=== PATIENT | male | born 1990 | race Caucasian/White ===

== ENCOUNTER 2019-03-06 11:13 | Emergency (ER) | payer SELFPAY ==
--- NOTE | 2019-03-06 11:44 | Emergency Department Record ---
History of Present Illness - General Chief Complaint: Abdominal Pain Stated Complaint: HERNIA AND STOMACH ULCERS Time Seen by Provider: 03/06/19 11:24 Source: Patient Mode of Arrival: Ambulatory Limitations: No limitations - History of Present Illness Initial Comments: The patient is here due to R groin bautista for the last 9 hours. The patient is worse with walking and bending. The patient has lifting very heavy objects 2 days ago but had no pain then. He also states he had some rectal bleeding 2 days ago but that resolved. He has had no abdominal pain, fever, diarrhea, dysuria, hematuria, or testicle pain. He has been eating and drinking with no problems or issues. MD Complaint: Other Onset/Timin -: Hour(s) Location: RLQ Severity scale (1-10): 8 Quality: Dull Consistency: Constant Improves With: Nothing Worsens With: Nothing - Related Data Home Medications Medication Instructions Recorded Confirmed Last Taken No Home Med [NO HOME MEDS] 03/06/19 03/06/19 Unknown Allergies Allergy/AdvReac Type Severity Reaction Status Date / Time bee venom protein (honey bee) Allergy ANEMIA Verified 03/06/19 11:23 mushroom Allergy ANAPHYLAXIS Verified 03/06/19 11:23 Travel Screening - Travel/Exposure Within Last 30 Days Have you traveled within the last 30 days?: No - Travel/Exposure Within Last Year Have you traveled outside the [place] in the last year?: No - Additonal Travel Details Have you been exposed to anyone with a communicable illness?: No - Travel Symptoms Symptom Screening: None Review of Systems Constitutional: Denies: Chills, Fever Eyes: Denies: Eye discharge ENT: Denies: Congestion Respiratory: Denies: Cough, Dyspnea Past Medical History - SOCIAL HISTORY Smoking Status: Never smoker Alcohol Use: Rare Drug Use: Rare Drug Use Detail:: Marijuana - RESPIRATORY Hx Respiratory Disorders: No - CARDIOVASCULAR Hx Cardio Disorders: No - NEURO Hx Neuro Disorders: No - GI Hx GI Disorders: Yes Hx Ulcer: Yes - Hx Genitourinary Disorders: No - ENDOCRINE Hx Endocrine Disorders: No - MUSCULOSKELETAL Hx Musculoskeletal Disorders: No - PSYCH Hx Psych Problems: No - HEMATOLOGY/ONCOLOGY Hx Hematology/Oncology Disorders: No Family Medical History Any Significant Family History?: No Physical Exam - General General Appearance: Alert, Oriented x3, Cooperative, No acute distress - Head Head exam: Atraumatic, Normocephalic - Eye Eye exam: Normal appearance, PERRL - Neck Neck exam: Normal inspection, Full ROM. negative: Tenderness - Respiratory Respiratory exam: Normal lung sounds bilaterally. negative: Respiratory distress - Cardiovascular Cardiovascular Exam: Regular rate, Normal rhythm, Normal heart sounds - GI/Abdominal GI/Abdominal exam: Soft, Normal bowel sounds. negative: Hernia, Rebound, Rigid, Tenderness - Rectal Rectal exam: Deferred (The patient is refusing a rectal exam.) - exam: Circumcision. negative: Normal inspection, Scrotal swelling, Testicular tenderness, Urethral discharge - Extremities Extremities exam: Normal inspection, Full ROM, Normal capillary refill. negative: Tenderness Image of Full Body: 1 - Area of pain and tenderness. There is no swelling or erythema. - Back Back exam: Reports: Normal inspection - Neurological Neurological exam: Alert. negative: Motor sensory deficit Course Vital Signs 03/06/19 11:13 Temperature 98.9 F Pulse Rate 86 Respiratory 18 Rate Blood Pressure 134/79 Pulse Ox 97 - Reevaluation(s) Reevaluation #1: The patient is doing very well at this time. He only has R groin pain when he walks, bends or moves his R leg. I did discuss the need to rest due to the patient having a mild groin strain. He is to see his PCP later this week for recheck. 03/06/19 12:31 Reevaluation #2: I also did discuss the need for F/U with his PCP for the possible rectal bleeding. Since the patient would not leg me check him rectally and he states he has no further bleeding, in addition to a normal HGB, I do feel the patient is stable for outpatient F/U. 03/06/19 12:32 Medical Decision Making - Lab Data Result diagrams: 03/06/19 11:40 03/06/19 11:40 Disposition Disposition: Discharge Clinical Impression: Right groin pain Disposition: Home, Self-Care Condition: (2) Stable Instructions: Groin Strain (ED) Additional Instructions: Please rest and use Tylenol for pain. Please see your family doctor for recheck later this week. Return to the ER for any worsening symptoms. Forms: Patient Portal Access Time of Disposition: 12:29 Quality - Quality Measures Quality Measures: N/A - Blood Pressure Screening View Details: Yes Does Patient Have Any of the Following: No Blood Pressure Classification: Pre-Hypertensive BP Reading Systolic Measurement: 134 Diastolic Measurement: 79 Screening for High Blood Pressure: < Pre-Hypertensive BP, F/U Documented > [G8950] Pre-Hypertensive Follow-up Interventions: Referral to alternative/primary care provider.
[2019-03-06 11:53] LABS: ABSOLUTE NEUTROPHIL COUNT 6.53; BASO % 0.4 % (0-6); EOS % 5.7 % (0-6); GRAN % 65.2 % (47-80); HEMATOCRIT 43.8 % (42.0-52.0); HEMOGLOBIN 15.1 gm/dl (14.0-18.0); LYMPH % 22.2 % (16-45); MEAN CELL VOLUME 84.4 fl (81-97); MEAN CORPUSCULAR HEMOGLOBIN 29.1 pg (27-33); MEAN CORPUSCULAR HGB CONC 34.5 g/dl (32-36); MEAN PLATELET VOLUME 9.8 fl (7.4-10.4); MONO % 6.5 % (0-9); PLATELET COUNT 309 K/uL (130-400); RED BLOOD COUNT 5.19 M/uL (4.40-5.70); RED CELL DISTRIBUTION WIDTH 12.2 % (11.5-14.5)
[2019-03-06 12:04] LABS: BLOOD UREA NITROGEN 13 mg/dL (6-20); CREATININE 0.8 mg/dL (0.7-1.2); EST GLOMERULAR FILTRATION RATE > 60 mL/min
[2019-03-06 12:05] LABS: TOTAL PROTEIN 7.3 g/dL (6.6-8.7)
[2019-03-06 12:07] LABS: GLUCOSE,RANDOM 111 mg/dL (74-109)
[2019-03-06 12:10] LABS: ALB/GLOB RATIO 1.6 (1.1-1.8); ALBUMIN 4.5 g/dL (4.0-5.0); ALKALINE PHOSPHATASE 87 U/L (40-129); ALT/SGPT 24 U/L (<41); AST/SGOT 18 U/L (10.0-50.0)
== END 2019-03-06 12:41 | disposition home or self-care (01) ==
LOC: ER 11:13
DX: S39.011A Strain of muscle, fascia and tendon of abdomen, initial encounter (principal); X50.0XXA Overexertion from strenuous movement or load, initial encounter; Y93.H9 Activity, other involving exterior property and land maintenance, building and construction
CPT/HCPCS: 80053; 85025; 99283

== ENCOUNTER 2019-04-28 22:45 | Emergency (ER) | payer SELFPAY ==
--- NOTE | 2019-04-28 23:04 | Emergency Department Record ---
History of Present Illness - General Chief Complaint: Ankle/Foot Injury Stated Complaint: INFECTED TOE NAIL Time Seen by Provider: 04/28/19 22:58 Source: Patient Mode of Arrival: Ambulatory - History of Present Illness Initial Comments: The patient has had about 3 months of a painful left great toenail. Tonight it began to drain so he came in to get it treated. He has no PCP. His tetanus is UTD. Onset/Timin -: Month(s) Type of Injury: Other Place: Home Severity scale (1-10): 6 Improves With: Other Worsens With: Palpation, Weight bearing Associated Symptoms: Ambulatory - Related Data Previous Rx's Medication Instructions Recorded Cephalexin [Keflex] 500 mg PO QID #28 cap 04/28/19 Allergies Allergy/AdvReac Type Severity Reaction Status Date / Time bee venom protein (honey bee) Allergy ANEMIA Verified 04/28/19 22:53 mushroom Allergy ANAPHYLAXIS Verified 04/28/19 22:53 Travel Screening - Travel/Exposure Within Last 30 Days Have you traveled within the last 30 days?: No - Travel/Exposure Within Last Year Have you traveled outside the [place] in the last year?: No - Additonal Travel Details Have you been exposed to anyone with a communicable illness?: No - Travel Symptoms Symptom Screening: None Review of Systems Reviewed: No additional complaints except as noted below Constitutional: Reports: As per HPI. Denies: Chills, Fever, Malaise, Night sweats, Weakness, Weight change Eyes: Reports: As per HPI. Denies: Eye discharge, Eye pain, Photophobia, Vision change ENT: Reports: As per HPI. Denies: Congestion, Dental pain, Ear pain, Epistaxis, Hearing loss, Throat pain Respiratory: Reports: As per HPI. Denies: Cough, Dyspnea, Hemoptysis, Stridor, Wheezes Cardiovascular: Reports: As per HPI. Denies: Arrhythmia, Chest pain, Dyspnea on exertion, Edema, Murmurs, Orthopnea, Palpitations, Paroxysmal nocturnal dyspnea, Rheumatic Fever, Syncope Endocrine: Reports: As per HPI. Denies: Fatigue, Heat or cold intolerance, Polydipsia, Polyuria Gastrointestinal: Reports: As per HPI. Denies: Abdominal pain, Constipation, Diarrhea, Hematemesis, Hematochezia, Melena, Nausea, Vomiting Genitourinary: Reports: As per HPI. Denies: Dysuria, Frequency, Hematuria, Incontinence, Retention, Testicular pain, Testicular mass, Urgency Musculoskeletal: Reports: As per HPI. Denies: Arthralgia, Back pain, Gout, Joint swelling, Myalgia, Neck pain Skin: Reports: As per HPI. Denies: Bruising, Change in color, Change in hair/nails, Lesions, Pruritus, Rash Neurological: Reports: As per HPI. Denies: Abnormal gait, Confusion, Headache, Numbness, Paresthesias, Seizure, Tingling, Tremors, Vertigo, Weakness Psychiatric: Reports: As per HPI. Denies: Anxiety, Auditory hallucinations, Depression, Homicidal thoughts, Suicidal thoughts, Visual hallucinations Hematological/Lymphatic: Reports: As per HPI. Denies: Anemia, Blood Clots, Easy bleeding, Easy bruising, Swollen glands Past Medical History - SOCIAL HISTORY Smoking Status: Never smoker Alcohol Use: Occasional Drug Use: None - RESPIRATORY Hx Respiratory Disorders: No - CARDIOVASCULAR Hx Cardio Disorders: No - NEURO Hx Neuro Disorders: No - GI Hx GI Disorders: Yes Hx Ulcer: Yes - Hx Genitourinary Disorders: No - ENDOCRINE Hx Endocrine Disorders: No - MUSCULOSKELETAL Hx Musculoskeletal Disorders: No - PSYCH Hx Psych Problems: No - HEMATOLOGY/ONCOLOGY Hx Hematology/Oncology Disorders: No Family Medical History Any Significant Family History?: No Physical Exam - General General Appearance: Alert, Oriented x3, Cooperative, No acute distress - Head Head exam: Normal inspection - Eye Eye exam: Normal appearance, PERRL Pupils: Normal accommodation - ENT ENT exam: Normal exam, Mucous membranes moist, Normal external ear exam, Normal orophraynx, TM's normal bilaterally Ear exam: Normal external inspection. negative: External canal tenderness Nasal Exam: Normal inspection. negative: Discharge, Sinus tenderness Mouth exam: Normal external inspection, Tongue normal Teeth exam: Normal inspection. negative: Dental caries Throat exam: Normal inspection. negative: Tonsillar erythema, Tonsillar exudate - Neck Neck exam: Normal inspection, Full ROM. negative: Tenderness - Respiratory Respiratory exam: Normal lung sounds bilaterally. negative: Respiratory distress - Cardiovascular Cardiovascular Exam: Regular rate, Normal rhythm, Normal heart sounds - GI/Abdominal GI/Abdominal exam: Soft, Normal bowel sounds. negative: Tenderness - Rectal Rectal exam: Deferred - exam: Deferred - Extremities Extremities exam: Normal inspection, Full ROM, Normal capillary refill, Other (left great toe with ingrown infected toenail drainng with visible abscess and erythema extending proximally onto toe). negative: Tenderness Image of Feet: 1 - ingrown toenail to lateral aspect of left great toenail. Bulging abscess with drainage at lateral disal nail edge. - Back Back exam: Reports: Normal inspection, Full ROM. Denies: Muscle spasm, Rash noted, Tenderness - Neurological Neurological exam: Alert, CN II-XII intact, Normal gait, Oriented X3, Reflexes normal. negative: Motor sensory deficit - Psychiatric Psychiatric exam: Normal affect, Normal mood - Skin Skin exam: Dry, Intact, Normal color, Warm Course Vital Signs 04/28/19 22:48 Temperature 97.9 F Pulse Rate 71 Respiratory 18 Rate Blood Pressure 143/87 Pulse Ox 98 - Reevaluation(s) Reevaluation #1: PROCEDURE: sterile technique prepped, draped after digital block of lido no epi 1% to left great toe 4cc total with good anesthesia. Trimmed skin and incised nail edge until corner of nail loosed from skin and free. Patient tolerated will no discharge. 04/28/19 23:48 Medical Decision Making - Management Options MDM Management: No Additional Work-up Planned Disposition Disposition: Discharge Clinical Impression: Ingrown toenail of left foot Disposition: Home, Self-Care Condition: (1) Good Additional Instructions: Open toe shoe. Take antibiotics as directed until gone. Warm soaks to toe twice daily. Dot Etcher Prescriptions: Cephalexin [Keflex] 500 mg PO QID #28 cap Quality - Quality Measures Quality Measures: N/A - Blood Pressure Screening Does Patient Have Any of the Following: No Blood Pressure Classification: Pre-Hypertensive BP Reading Systolic Measurement: 143 Diastolic Measurement: 87 Screening for High Blood Pressure: < Pre-Hypertensive BP, F/U Documented > [G8950] Pre-Hypertensive Follow-up Interventions: Follow-up with rescreen every year., Referral to alternative/primary care provider.
[2019-04-28] MEDS ORDERED: CEPHALEXIN 500 MG CAPSULE PO STA (23:18)
== END 2019-04-28 23:55 | disposition home or self-care (01) ==
LOC: ER 22:45
DX: L60.0 Ingrowing nail (principal)
CPT/HCPCS: 11750; 99283

== ENCOUNTER 2019-07-23 23:16 | Emergency (ER) | payer SELFPAY ==
[2019-07-23] MEDS ORDERED: IPRATROPIUM/ALBUTEROL (0.5MG/3MG) NEB INH ONE (23:41)
[2019-07-23] MEDS ORDERED: METHYLPREDNISOLONE PF 125MG/VIAL IVP ONE (23:41)
[2019-07-23 23:54] LABS: ABSOLUTE NEUTROPHIL COUNT 11.57; HEMATOCRIT 41.8 % (42.0-52.0); HEMOGLOBIN 14.3 gm/dl (14.0-18.0); MEAN CELL VOLUME 83.9 fl (81-97); MEAN CORPUSCULAR HEMOGLOBIN 28.7 pg (27-33); MEAN CORPUSCULAR HGB CONC 34.2 g/dl (32-36); MEAN PLATELET VOLUME 9.9 fl (7.4-10.4); PLATELET COUNT 264 K/uL (130-400); RED BLOOD COUNT 4.98 M/uL (4.40-5.70); RED CELL DISTRIBUTION WIDTH 12.4 % (11.5-14.5); WHITE BLOOD COUNT W/O DIFF 14.1 K/uL (4.2-12.2)
[2019-07-23] MEDS ORDERED: LEVALBUTEROL HCL 1.25 MG/3 ML INH ONE (23:57)
[2019-07-24 00:06] LABS: BLOOD UREA NITROGEN 16 mg/dL (6-20); CREATININE 0.9 mg/dL (0.7-1.2); EST GLOMERULAR FILTRATION RATE > 60 mL/min
[2019-07-24 00:08] LABS: GLUCOSE,RANDOM 111 mg/dL (74-109)
[2019-07-24] MEDS ORDERED: ONDANSETRON HCL IV 4 MG/2 ML VIAL IVP ONE (00:09)
--- NOTE | 2019-07-24 00:14 | Emergency Department Record ---
History of Present Illness - General Chief Complaint: Cough Stated Complaint: VOMITING/ACHES/SANDY Time Seen by Provider: 07/23/19 23:27 Source: Patient Mode of Arrival: Ambulatory Limitations: No limitations - History of Present Illness Initial Comments: pt woke with congestion this am which became coughing green productive, sob, wheezing. he has vomited multiple times. he has pain w coughing MD Complaint: Chest pain, Cough, Shortness of breath -: Hour(s) Severity: Moderate Consistency: Getting worse Improves With: Nothing Worsens With: Coughing Context: Recent URI Associated Symptoms: Cough, Fever, Sputum production - Related Data Previous Rx's Medication Instructions Recorded Azithromycin [Zithromax] 250 mg PO DAILY #4 tab 07/24/19 Prednisone [Prednisone 20Mg] 20 mg PO Q12HR #8 tab 07/24/19 Allergies Allergy/AdvReac Type Severity Reaction Status Date / Time bee venom protein (honey bee) Allergy ANAPHYLAXIS Unverified 07/24/19 00:09 mushroom Allergy ANAPHYLAXIS Unverified 06/05/19 19:44 Travel Screening - Travel/Exposure Within Last 30 Days Have you traveled within the last 30 days?: No - Travel Symptoms Symptom Screening: None Review of Systems Reviewed: No additional complaints except as noted below Constitutional: Reports: As per HPI. Denies: Chills, Fever, Malaise, Night sweats, Weakness, Weight change Eyes: Reports: As per HPI. Denies: Eye discharge, Eye pain, Photophobia, Vision change ENT: Reports: As per HPI, Congestion. Denies: Dental pain, Ear pain, Epistaxis, Hearing loss, Throat pain Respiratory: Reports: As per HPI, Cough, Dyspnea. Denies: Hemoptysis, Stridor, Wheezes Cardiovascular: Reports: As per HPI. Denies: Arrhythmia, Chest pain, Dyspnea on exertion, Edema, Murmurs, Orthopnea, Palpitations, Paroxysmal nocturnal dyspnea, Rheumatic Fever, Syncope Endocrine: Reports: As per HPI. Denies: Fatigue, Heat or cold intolerance, Polydipsia, Polyuria Gastrointestinal: Reports: As per HPI. Denies: Abdominal pain, Constipation, Diarrhea, Hematemesis, Hematochezia, Melena, Nausea, Vomiting Genitourinary: Reports: As per HPI. Denies: Dysuria, Frequency, Hematuria, Incontinence, Retention, Testicular pain, Testicular mass, Urgency Musculoskeletal: Reports: As per HPI. Denies: Arthralgia, Back pain, Gout, Joint swelling, Myalgia, Neck pain Skin: Reports: As per HPI. Denies: Bruising, Change in color, Change in hair/ nails, Lesions, Pruritus, Rash Neurological: Reports: As per HPI. Denies: Abnormal gait, Confusion, Headache, Numbness, Paresthesias, Seizure, Tingling, Tremors, Vertigo, Weakness Psychiatric: Reports: As per HPI. Denies: Anxiety, Auditory hallucinations, Depression, Homicidal thoughts, Suicidal thoughts, Visual hallucinations Hematological/Lymphatic: Reports: As per HPI. Denies: Anemia, Blood Clots, Easy bleeding, Easy bruising, Swollen glands Past Medical History - SOCIAL HISTORY Smoking Status: Never smoker Alcohol Use: None Drug Use: None - RESPIRATORY Hx Respiratory Disorders: No - CARDIOVASCULAR Hx Cardio Disorders: No - NEURO Hx Neuro Disorders: No - GI Hx GI Disorders: Yes Hx Ulcer: Yes - Hx Genitourinary Disorders: No - ENDOCRINE Hx Endocrine Disorders: No - MUSCULOSKELETAL Hx Musculoskeletal Disorders: No - PSYCH Hx Psych Problems: No - HEMATOLOGY/ONCOLOGY Hx Hematology/Oncology Disorders: No Family Medical History Any Significant Family History?: No Physical Exam - General General Appearance: Alert, Oriented x3, Cooperative, Mild distress - Head Head exam: Normal inspection - Eye Eye exam: Normal appearance, PERRL, EOMI Pupils: Normal accommodation - ENT ENT exam: Normal exam, Mucous membranes moist, Normal external ear exam, Normal orophraynx Ear exam: Normal external inspection. negative: External canal tenderness Nasal Exam: Normal inspection. negative: Discharge, Sinus tenderness Mouth exam: Normal external inspection, Tongue normal Teeth exam: Normal inspection. negative: Dental caries Throat exam: Normal inspection. negative: Tonsillar erythema, Tonsillar exudate - Neck Neck exam: Normal inspection, Full ROM. negative: Tenderness - Respiratory Respiratory exam: Normal lung sounds bilaterally, Accessory muscle use, Respiratory distress, Wheezes - Cardiovascular Cardiovascular Exam: Normal rhythm, Normal heart sounds, Tachycardia - GI/Abdominal GI/Abdominal exam: Soft, Normal bowel sounds. negative: Tenderness - Rectal Rectal exam: Deferred - exam: Deferred - Extremities Extremities exam: Normal inspection, Full ROM, Normal capillary refill. negative: Tenderness - Back Back exam: Reports: Normal inspection, Full ROM. Denies: Muscle spasm, Rash noted, Tenderness - Neurological Neurological exam: Alert, CN II-XII intact, Normal gait, Oriented X3 - Psychiatric Psychiatric exam: Normal affect, Normal mood - Skin Skin exam: Dry, Intact, Normal color, Warm Course Vital Signs 07/23/19 07/23/19 07/23/19 23:20 23:22 23:51 Temperature 99.1 F 99.1 F Pulse Rate 111 H 126 H Pulse Rate [ 111 H Left] Respiratory 24 16 20 Rate Blood Pressure 136/78 Blood Pressure 136/78 [Left] Pulse Ox 95 97 97 07/24/19 00:03 Temperature Pulse Rate 112 H Pulse Rate [ Left] Respiratory 18 Rate Blood Pressure Blood Pressure [Left] Pulse Ox 98 - Reevaluation(s) Reevaluation #1: 07/24/19 01:47 pt feels much better Medical Decision Making - Lab Data Result diagrams: 07/23/19 23:40 07/23/19 23:40 Lab Results 07/23/19 07/23/19 Range/Units 23:40 23:40 WBC 14.1 H (4.2-12.2) K/uL RBC 4.98 (4.40-5.70) M/uL Hgb 14.3 (14.0-18.0) gm/dl Hct 41.8 L (42.0-52.0) % MCV 83.9 (81-97) fl MCH 28.7 (27-33) pg MCHC 34.2 (32-36) g/dl RDW 12.4 (11.5-14.5) % Plt Count 264 (130-400) K/uL MPV 9.9 (7.4-10.4) fl Neutrophils % 82.0 H (47-80) % Band Neutrophils % 2.0 (0-5) % Eosinophils % Not Reportable Basophils % Not Reportable Absolute Neutrophils 11.57 Lymphocytes 8.0 L (16-45) % Monocytes 7.0 (0-9) % RBC Morphology Normal Eosinophil Count 1.0 (0-6) % Sodium 141 (136-145) mmol/L Potassium 4.2 (3.4-4.5) mmol/L Chloride 99 (98-107) mmol/L Carbon Dioxide 25.0 (22-29) mmol/L Anion Gap 17.0 H (7-16) BUN 16 (6-20) mg/dL Creatinine 0.9 (0.7-1.2) mg/dL Estimated GFR > 60 mL/min Calcium 9.0 (8.6-10.0) mg/dL Disposition Disposition: Discharge Clinical Impression: Asthmatic bronchitis with acute exacerbation Qualifiers: Asthma severity: mild Asthma persistence: intermittent Qualified Code(s): J45.21 - Mild intermittent asthma with (acute) exacerbation Disposition: Home, Self-Care Condition: (1) Good Instructions: Acute Bronchitis (ED), Asthma (ED), Reactive Airways Disease (ED) Additional Instructions: follow up with family doctor. return sooner if worse. proventil inhaler 2 puffs every 4-6hrs as needed. Prescriptions: Prednisone [Prednisone 20Mg] 20 mg PO Q12HR #8 tab Azithromycin [Zithromax] 250 mg PO DAILY #4 tab Forms: Return to Work/School Quality - Quality Measures Quality Measures: N/A - Blood Pressure Screening Does Patient Have Any of the Following: No Blood Pressure Classification: Pre-Hypertensive BP Reading Systolic Measurement: 136 Diastolic Measurement: 78 Screening for High Blood Pressure: < Pre-Hypertensive BP, F/U Documented > [G8950] Pre-Hypertensive Follow-up Interventions: Follow-up with rescreen every year.
--- NOTE | 2019-07-24 00:29 | RADIOLOGY REPORT ---
EXAMINATION: Two View Chest Radiographs EXAM DATE: 07/24/2019 12:23 AM TECHNIQUE: Frontal and lateral views INDICATION: sob COMPARISON: 07/24/2014 ENCOUNTER: Not applicable FINDINGS: The heart, mediastinum, and pulmonary vasculature are normal. No lung consolidation or pleural effu sions are present. IMPRESSION: No acute cardiopulmonary disease is present. Dictated by: Nica Osborne MD on 07/24/2019 12:27 AM. .
[2019-07-24 00:35] LABS: INFLUENZA A NEGATIVE (NEGATIVE); INFLUENZA B NEGATIVE (NEGATIVE)
[2019-07-24] MEDS ORDERED: LEVALBUTEROL HCL 1.25 MG/3 ML INH ONE (01:04)
[2019-07-24] MEDS ORDERED: AZITHROMYCIN 500 MG in 0.9 % SODIUM CHLORIDE 250ML 250 ML IVPB ONE (01:06)
[2019-07-24] MEDS ORDERED: ALBUTEROL HFA 8 GM INHALER INH ONE (01:47)
[2019-07-24] MEDS ORDERED: IBUPROFEN 600 MG TABLET PO ONE (02:01)
== END 2019-07-24 02:25 | disposition home or self-care (01) ==
LOC: ER 23:16
DX: J45.21 Mild intermittent asthma with (acute) exacerbation (principal); R11.10 Vomiting, unspecified; R06.02 Shortness of breath
CPT/HCPCS: 71046; 80048; 85027; 87400; 94150; 94640; 96365; 96375; 99284; J0456; J2405; J2930; J7050

== ENCOUNTER 2019-07-26 07:17 | Emergency (ER) | payer SELFPAY ==
--- NOTE | 2019-07-26 07:24 | Emergency Department Record ---
History of Present Illness - General Chief complaint: Vomiting blood Stated complaint: VOMITING BLOOD Time Seen by Provider: 07/26/19 07:20 Source: Patient, RN notes reviewed - History of Present Illness Initial comments: vomiting which started at 11pm last night and vomiting about 10 times with blood in it and also diarrhea 5 times per hour and 4 days ago he was having asthma and given steroids and a zpak. No blood in the diarrhea. Some right flank pain - Related Data Home Medications Medication Instructions Recorded Confirmed Last Taken Albuterol Sulfate [Albuterol 2 puff INH Q4H 07/26/19 07/26/19 07/25/19 Sulfate Hfa] Previous Rx's Medication Instructions Recorded Azithromycin [Zithromax] 250 mg PO DAILY #4 tab 07/24/19 Prednisone [Prednisone 20Mg] 20 mg PO Q12HR #8 tab 07/24/19 Albuterol Sulfate [Proair Hfa] 1 - 2 puff IH .EVERY 4-6 HOURS PRN 07/26/19 #1 inhaler Omeprazole 20 mg PO DAILY #30 cap. 07/26/19 Ondansetron HCl [Zofran] 4 mg PO Q6HR #14 tablet 07/26/19 Allergies Allergy/AdvReac Type Severity Reaction Status Date / Time bee venom protein (honey bee) Allergy ANAPHYLAXIS Verified 07/26/19 07:23 mushroom Allergy ANAPHYLAXIS Verified 07/26/19 07:23 Review of Systems Reviewed: No additional complaints except as noted below Constitutional: Reports: As per HPI. Denies: Chills, Fever, Malaise, Night sweats, Weakness, Weight change Eyes: Reports: As per HPI. Denies: Eye discharge, Eye pain, Photophobia, Vision change ENT: Reports: As per HPI. Denies: Congestion, Dental pain, Ear pain, Epistaxis, Hearing loss, Throat pain Respiratory: Reports: As per HPI. Denies: Cough, Dyspnea, Hemoptysis, Stridor, Wheezes Cardiovascular: Reports: As per HPI. Denies: Arrhythmia, Chest pain, Dyspnea on exertion, Edema, Murmurs, Orthopnea, Palpitations, Paroxysmal nocturnal dyspnea, Rheumatic Fever, Syncope Endocrine: Reports: As per HPI. Denies: Fatigue, Heat or cold intolerance, Polydipsia, Polyuria Gastrointestinal: Reports: As per HPI, Abdominal pain, Diarrhea, Nausea, Vomiting. Denies: Constipation, Hematemesis, Hematochezia, Melena Genitourinary: Reports: As per HPI. Denies: Dysuria, Frequency, Hematuria, Incontinence, Retention, Testicular pain, Testicular mass, Urgency Musculoskeletal: Reports: As per HPI. Denies: Arthralgia, Back pain, Gout, Joint swelling, Myalgia, Neck pain Skin: Reports: As per HPI. Denies: Bruising, Change in color, Change in hair/nails, Lesions, Pruritus, Rash Neurological: Reports: As per HPI. Denies: Abnormal gait, Confusion, Headache, Numbness, Paresthesias, Seizure, Tingling, Tremors, Vertigo, Weakness Psychiatric: Reports: As per HPI. Denies: Anxiety, Auditory hallucinations, Depression, Homicidal thoughts, Suicidal thoughts, Visual hallucinations Hematological/Lymphatic: Reports: As per HPI. Denies: Anemia, Blood Clots, Easy bleeding, Easy bruising, Swollen glands Past Medical History - SOCIAL HISTORY Smoking Status: Never smoker Drug Use: None - RESPIRATORY Hx Respiratory Disorders: No - CARDIOVASCULAR Hx Cardio Disorders: No - NEURO Hx Neuro Disorders: No - GI Hx GI Disorders: Yes Hx Ulcer: Yes - Hx Genitourinary Disorders: No - ENDOCRINE Hx Endocrine Disorders: No - MUSCULOSKELETAL Hx Musculoskeletal Disorders: No - PSYCH Hx Psych Problems: No - HEMATOLOGY/ONCOLOGY Hx Hematology/Oncology Disorders: No Physical Exam - General General Appearance: Alert, Oriented x3, Cooperative, No acute distress - Head Head exam: Normal inspection - Eye Eye exam: Normal appearance, PERRL Pupils: Normal accommodation - ENT ENT exam: Normal exam, Mucous membranes moist, Normal external ear exam, Normal orophraynx, TM's normal bilaterally Ear exam: Normal external inspection. negative: External canal tenderness Nasal Exam: Normal inspection. negative: Discharge, Sinus tenderness Mouth exam: Normal external inspection, Tongue normal Teeth exam: Normal inspection. negative: Dental caries Throat exam: Normal inspection. negative: Tonsillar erythema, Tonsillar exudate - Neck Neck exam: Normal inspection, Full ROM. negative: Tenderness - Respiratory Respiratory exam: Normal lung sounds bilaterally. negative: Respiratory distress - Cardiovascular Cardiovascular Exam: Regular rate, Normal rhythm, Normal heart sounds - GI/Abdominal GI/Abdominal exam: Soft, Normal bowel sounds. negative: Tenderness - Rectal Rectal exam: Deferred - exam: Deferred - Extremities Extremities exam: Normal inspection, Full ROM, Normal capillary refill. negative: Tenderness - Back Back exam: Reports: Normal inspection, Full ROM. Denies: Muscle spasm, Rash noted, Tenderness - Neurological Neurological exam: Alert, Normal gait, Oriented X3, Reflexes normal - Psychiatric Psychiatric exam: Normal affect, Normal mood - Skin Skin exam: Dry, Intact, Normal color, Warm Course - Reevaluation(s) Reevaluation #1: NG tube placed and no blood in the stomach yellow bile drawn back on the syringe no visible blood 07/26/19 10:15 Medical Decision Making - Lab Data Result diagrams: 07/26/19 08:00 07/26/19 08:00 Disposition Clinical Impression: Viral syndrome Hematemesis Qualifiers: Nausea presence: with nausea Qualified Code(s): K92.0 - Hematemesis Diarrhea Qualifiers: Diarrhea type: unspecified type Qualified Code(s): R19.7 - Diarrhea, unspecified Gastritis Qualifiers: Gastritis type: superficial Chronicity: acute Disposition: Home, Self-Care Condition: (1) Good Instructions: Gastritis (ED), Gastroenteritis (ED) Additional Instructions: follow up with family Dr in 2 to 5 days zofran 4 mg every 6 omeprazole 20 mg one a day Prescriptions: Ondansetron HCl [Zofran] 4 mg PO Q6HR #14 tablet Omeprazole 20 mg PO DAILY #30 cap. Albuterol Sulfate [Proair Hfa] 1 - 2 puff IH .EVERY 4-6 HOURS PRN #1 inhaler PRN Reason: Difficulty In Breathing Forms: Patient Portal Access Time of Disposition: 10:22 Quality - Quality Measures Quality Measures: N/A - Blood Pressure Screening Does Patient Have Any of the Following: No Blood Pressure Classification: Normal BP Reading Systolic Measurement: 119 Diastolic Measurement: 76 Screening for High Blood Pressure: < Normal BP, F/U Not Required > [G8783]
[2019-07-26] MEDS: ONDANSETRON HCL IV 4 MG/2 ML VIAL IV ONE (07:57)
[2019-07-26] MEDS: 0.9 % SODIUM CHLORIDE 1,000 ML BAG IV ONE (07:58)
[2019-07-26 08:07] LABS: HEMOGLOBIN 15.6 gm/dl (14.0-18.0); MEAN CORPUSCULAR HEMOGLOBIN 28.8 pg (27-33); MEAN CORPUSCULAR HGB CONC 33.9 g/dl (32-36); MEAN PLATELET VOLUME 9.9 fl (7.4-10.4); PLATELET COUNT 281 K/uL (130-400); RED BLOOD COUNT 5.41 M/uL (4.40-5.70); RED CELL DISTRIBUTION WIDTH 12.9 % (11.5-14.5); WHITE BLOOD COUNT W/O DIFF 11.1 K/uL (4.2-12.2)
[2019-07-26 08:22] LABS: BLOOD UREA NITROGEN 24 mg/dL (6-20); CREATININE 0.9 mg/dL (0.7-1.2); EST GLOMERULAR FILTRATION RATE > 60 mL/min
[2019-07-26 08:23] LABS: LIPASE 17 U/L (13-60); TOTAL PROTEIN 7.6 g/dL (6.6-8.7)
[2019-07-26 08:25] LABS: GLUCOSE,RANDOM 113 mg/dL (74-109)
[2019-07-26 08:27] LABS: ALT/SGPT 53 U/L (<41)
[2019-07-26 08:28] LABS: ALBUMIN 4.7 g/dL (4.0-5.0); ALKALINE PHOSPHATASE 89 U/L (40-129); AST/SGOT 31 U/L (10.0-50.0); BILIRUBIN,DIRECT < 0.2 mg/dL (0-0.3)
--- NOTE | 2019-07-26 09:26 | CT SCAN REPORT ---
EXAMINATION: CT Abdomen and Pelvis without IV Contrast EXAM DATE: 07/26/2019 8:46 AM TECHNIQUE: Standard protocol CT imaging of the abdomen and pelvis was performed without intravenous c ontrast. INDICATION: vomiting blood, right sided upper abd pain COMPARISON: None ENCOUNTER: Not applicable CT ABDOMEN AND PELVIS FINDINGS: Lung Bases: Included extent of the lung bases are clear. Hepatobiliary: The liver has a normal size with a smooth surface. The gallbladder appears normal wit hout evidence of gallstones. Pancreas: The pancreas is normal. Spleen: The spleen is not enlarged. Adrenals: The adrenal glands are normal. Kidneys, Ureters, & Bladder: Both kidneys have a normal size and morphology. There is no hydronephro sis. No renal stones. Both ureters have a normal course and caliber and the urinary bladder a normal morphology and uniform wall thickness. No ureteral or bladder calculi are identified. Gastrointestinal: The stomach and small bowel are normal with no obstruction or inflammation. The shoaib endix is not well seen with no evidence of acute appendicitis. No dilated bowel. Reproductive Organs: Unremarkable Lymphatic System: There is no adenopathy within the abdomen or pelvis. Vasculature: Normal caliber abdominal aorta Peritoneum: No free fluid, free air, or inflammation Abdominal wall & Musculoskeletal: No suspicious bone lesions. Small fat-containing umbilical hernia. Assessment of the solid organs, soft tissues, and vascular structures is overall limited on noncontra st imaging, IMPRESSION: 1. No suspicious renal or ureteral stones. 2. No evidence of hydronephrosis on either side. 3. The appendix is not well seen. No evidence of acute appendicitis. 4. No free fluid, free air, or significant inflammation. Dictated by: Pedro Fuller MD on 07/26/2019 9:08 AM. .
== END 2019-07-26 10:45 | disposition home or self-care (01) ==
LOC: ER 07:17
DX: K92.0 Hematemesis (principal); R19.7 Diarrhea, unspecified; K29.70 Gastritis, unspecified, without bleeding; B34.9 Viral infection, unspecified; J45.909 Unspecified asthma, uncomplicated
CPT/HCPCS: 74176; 80048; 80076; 83690; 85027; 96360; 96361; 96374; 99284; J2405; J7030

== ENCOUNTER 2019-10-08 00:51 | Emergency (ER) | payer SELFPAY ==
[2019-10-08] MEDS ORDERED: CLINDAMYCIN 150 MG CAP PO ONE (00:59)
--- NOTE | 2019-10-08 01:00 | Emergency Department Record ---
History of Present Illness - General Chief complaint: Abscess Stated complaint: FOOT ABSCESS Time Seen by Provider: 10/08/19 00:53 Source: Patient Mode of Arrival: Ambulatory Limitations: No limitations - History of Present Illness Initial comments: 29 yo male presents to ED for evaluation of mild STS and pain to the right forefoot that has been present for 5 days. Patient reports that he works at [employer], figured that his work boots had given him a blister but the area opened up and starting "oozing white stuff". Patient denies possible FB, denies fevers, chills, or recent illness. Patient denies health problems other than asthma. MD complaint: Abscess/boil Onset/Timin -: Days(s) Location: RLE Severity: Moderate Quality: Aching Consistency: Constant Improves with: None Worsens with: None Context: None Associated symptoms: Denies other symptoms Treatments Prior to Arrival: None - Related Data Previous Rx's Medication Instructions Recorded Clindamycin HCl [Cleocin HCl] 300 mg PO Q6H #27 capsule 10/08/19 Allergies Allergy/AdvReac Type Severity Reaction Status Date / Time bee venom protein (honey bee) Allergy ANAPHYLAXIS Verified 10/08/19 01:03 mushroom Allergy ANAPHYLAXIS Verified 10/08/19 01:03 Review of Systems Constitutional: Denies: Chills, Fever, Malaise, Night sweats Eyes: Denies: Eye discharge, Eye pain ENT: Denies: Congestion, Ear pain, Epistaxis Respiratory: Denies: Cough, Dyspnea Cardiovascular: Denies: Chest pain, Dyspnea on exertion Endocrine: Denies: Fatigue, Heat or cold intolerance Gastrointestinal: Denies: Abdominal pain, Nausea, Vomiting Genitourinary: Denies: Incontinence, Retention Musculoskeletal: Denies: Arthralgia, Back pain Skin: Reports: Change in color. Denies: Bruising, Change in hair/nails Neurological: Denies: Abnormal gait, Confusion, Headache, Seizure Psychiatric: Denies: Anxiety Hematological/Lymphatic: Denies: Anemia, Blood Clots Past Medical History - SOCIAL HISTORY Smoking Status: Never smoker Drug Use: None - RESPIRATORY Hx Respiratory Disorders: No - CARDIOVASCULAR Hx Cardio Disorders: No - NEURO Hx Neuro Disorders: No - GI Hx GI Disorders: Yes Hx Ulcer: Yes - Hx Genitourinary Disorders: No - ENDOCRINE Hx Endocrine Disorders: No - MUSCULOSKELETAL Hx Musculoskeletal Disorders: No - PSYCH Hx Psych Problems: No - HEMATOLOGY/ONCOLOGY Hx Hematology/Oncology Disorders: No Physical Exam - General General Appearance: Alert, Oriented x3, Cooperative, No acute distress Limitations: No limitations - Head Head exam: Atraumatic, Normocephalic, Normal inspection Head exam detail: negative: Abrasion, Contusion, Castro's sign, General tenderness, Hematoma, Laceration - Eye Eye exam: Normal appearance. negative: Conjunctival injection, Periorbital swelling, Periorbital tenderness, Scleral icterus - ENT Ear exam: negative: Auricular hematoma, Auricular trauma Nasal Exam: negative: Active bleeding, Discharge, Dried blood, Foreign body Mouth exam: negative: Drooling, Laceration, Muffled voice, Tongue elevation - Neck Neck exam: Normal inspection. negative: Meningismus, Tenderness - Respiratory Respiratory exam: Normal lung sounds bilaterally. negative: Rales, Respiratory distress, Rhonchi, Stridor - Cardiovascular Cardiovascular Exam: Regular rate, Normal rhythm, Normal heart sounds - GI/Abdominal GI/Abdominal exam: Soft. negative: Rebound, Rigid, Tenderness - Rectal Rectal exam: Deferred - exam: Deferred - Extremities Extremities exam: Tenderness, Other (Mild STS to the right forefoot along the plantar surface, area of draining purulent fluid is present on examination. No induration, no fluctuance, and no evidence for FB is present on examination.). negative: Calf tenderness, Pedal edema - Back Back exam: Denies: CVA tenderness (R), CVA tenderness (L) - Neurological Neurological exam: Alert, Normal gait, Oriented X3 - Psychiatric Psychiatric exam: Normal affect, Normal mood - Skin Skin exam: Normal color. negative: Abrasion Type of lesion: negative: abrasion Course Vital Signs 10/08/19 00:56 Temperature 97.8 F Pulse Rate [ 74 Pulse Ox Probe] Respiratory 20 Rate Blood Pressure 130/75 [Left Arm] Pulse Ox 98 - Reevaluation(s) Reevaluation #1: 10/08/19 01:08 Patient was seen and examined. Abscess was drained in the ED, no surrounding erythema/fluctuance are present on examination. Patient was instructed to perform warm soaks twice daily, will initiate treatment with Clindamycin as directed. Disposition Disposition: Discharge Clinical Impression: Foot abscess, right Disposition: Home, Self-Care Condition: (2) Stable Instructions: Abscess (ED) Additional Instructions: Return to ED if your symptoms worsen or if you have any concerns. Clindamycin as directed. Warm soaks 2-3 times dialy. Follow-up with your family doctor in 3-5 days as directed. Prescriptions: Clindamycin HCl [Cleocin HCl] 300 mg PO Q6H #27 capsule Forms: Patient Portal Access Time of Disposition: 01:00 Quality - Quality Measures Quality Measures: N/A - Blood Pressure Screening Does Patient Have Any of the Following: No Blood Pressure Classification: Pre-Hypertensive BP Reading Systolic Measurement: 130 Diastolic Measurement: 75 Screening for High Blood Pressure: < Pre-Hypertensive BP, F/U Documented > [G8950] Pre-Hypertensive Follow-up Interventions: Referral to alternative/primary care provider.
== END 2019-10-08 01:15 | disposition home or self-care (01) ==
LOC: ER 00:51
DX: L02.611 Cutaneous abscess of right foot (principal)
CPT/HCPCS: 99283

== ENCOUNTER 2019-10-11 15:23 | Emergency (ER) | payer SELFPAY ==
--- NOTE | 2019-10-11 17:41 | Emergency Department Record ---
History of Present Illness - General Chief complaint: Eye Problem Stated complaint: LT EYE DISCHARGE Time Seen by Provider: 10/11/19 17:30 Source: Patient, RN notes reviewed Mode of Arrival: Ambulatory - History of Present Illness Initial comments: patient states he has drainage from his left eye and he is concerned about MRSA in his eye. the ey started to drain today. He was started on clindamycin 3 days ago 300 mg QID for [address] Landry through the ED and he states no family Dr. Left eye Onset/Timin -: Hour(s) Onset Description: Awoke with symptoms Location: Left eye Place: Home Eye Symptoms: Discharge, Photophobia, Redness If Pain, Quality: Aching Consistency: Constant - Related Data With correction: No Hx Tetanus Toxoid Vaccination: Yes Year of Tetanus Vaccination: 2018 Previous Rx's Medication Instructions Recorded Clindamycin HCl [Cleocin HCl] 300 mg PO Q6H #27 capsule 10/08/19 Sulfacetamide Sodium [Bleph-10] 2 drop AFFEYE QID #5 ml 10/11/19 Allergies Allergy/AdvReac Type Severity Reaction Status Date / Time bee venom protein (honey bee) Allergy ANAPHYLAXIS Verified 10/11/19 16:57 mushroom Allergy ANAPHYLAXIS Verified 10/11/19 16:57 Travel/Exposure Screening - Travel/Exposure Within Last 30 Days Have you traveled within the last 30 days?: No - Travel/Exposure Within Last Year Have you traveled outside the [place] in the last year?: No - Additonal Travel/Exposure Details Have you been exposed to anyone with a communicable illness?: No - Travel Symptoms Symptom Screening: None Review of Systems Reviewed: No additional complaints except as noted below Constitutional: Reports: As per HPI. Denies: Chills, Fever, Malaise, Night sweats, Weakness, Weight change Eyes: Reports: As per HPI, Eye discharge. Denies: Eye pain, Photophobia, Vision change ENT: Reports: As per HPI. Denies: Congestion, Dental pain, Ear pain, Epistaxis, Hearing loss, Throat pain Respiratory: Reports: As per HPI. Denies: Cough, Dyspnea, Hemoptysis, Stridor, Wheezes Cardiovascular: Reports: As per HPI. Denies: Arrhythmia, Chest pain, Dyspnea on exertion, Edema, Murmurs, Orthopnea, Palpitations, Paroxysmal nocturnal dyspnea, Rheumatic Fever, Syncope Endocrine: Reports: As per HPI. Denies: Fatigue, Heat or cold intolerance, Polydipsia, Polyuria Gastrointestinal: Reports: As per HPI. Denies: Abdominal pain, Constipation, Diarrhea, Hematemesis, Hematochezia, Melena, Nausea, Vomiting Genitourinary: Reports: As per HPI. Denies: Dysuria, Frequency, Hematuria, Incontinence, Retention, Testicular pain, Testicular mass, Urgency Musculoskeletal: Reports: As per HPI. Denies: Arthralgia, Back pain, Gout, Joint swelling, Myalgia, Neck pain Skin: Reports: As per HPI. Denies: Bruising, Change in color, Change in ania r/nails, Lesions, Pruritus, Rash Neurological: Reports: As per HPI. Denies: Abnormal gait, Confusion, Headache, Numbness, Paresthesias, Seizure, Tingling, Tremors, Vertigo, Weakness Psychiatric: Reports: As per HPI. Denies: Anxiety, Auditory hallucinations, Depression, Homicidal thoughts, Suicidal thoughts, Visual hallucinations Hematological/Lymphatic: Reports: As per HPI. Denies: Anemia, Blood Clots, Easy bleeding, Easy bruising, Swollen glands Past Medical History - SOCIAL HISTORY Smoking Status: Never smoker Alcohol Use: None Drug Use: None - RESPIRATORY Hx Respiratory Disorders: No - CARDIOVASCULAR Hx Cardio Disorders: No - NEURO Hx Neuro Disorders: No - GI Hx GI Disorders: Yes Hx Ulcer: Yes - Hx Genitourinary Disorders: No - ENDOCRINE Hx Endocrine Disorders: No - MUSCULOSKELETAL Hx Musculoskeletal Disorders: No - PSYCH Hx Psych Problems: No - HEMATOLOGY/ONCOLOGY Hx Hematology/Oncology Disorders: No Family Medical History Any Significant Family History?: No Physical Exam - General General Appearance: Alert, Oriented x3, Cooperative, No acute distress - Head Head exam: Normal inspection - Eye Eye exam: PERRL, Conjunctival injection, Other (discharge) Pupils: Normal accommodation With correction: No - ENT ENT exam: Normal exam, Mucous membranes moist, Normal external ear exam, Normal orophraynx, TM's normal bilaterally Ear exam: Normal external inspection. negative: External canal tenderness Nasal Exam: Normal inspection. negative: Discharge, Sinus tenderness Mouth exam: Normal external inspection, Tongue normal Teeth exam: Normal inspection. negative: Dental caries Throat exam: Normal inspection. negative: Tonsillar erythema, Tonsillar exudate - Neck Neck exam: Normal inspection, Full ROM. negative: Tenderness - Respiratory Respiratory exam: Normal lung sounds bilaterally. negative: Respiratory distress - Cardiovascular Cardiovascular Exam: Regular rate, Normal rhythm, Normal heart sounds - GI/Abdominal GI/Abdominal exam: Soft, Normal bowel sounds. negative: Tenderness - Rectal Rectal exam: Deferred - exam: Deferred - Extremities Extremities exam: Normal inspection, Full ROM, Normal capillary refill. negative: Tenderness - Back Back exam: Reports: Normal inspection, Full ROM. Denies: Muscle spasm, Rash noted, Tenderness - Neurological Neurological exam: Alert, Normal gait, Oriented X3, Reflexes normal - Psychiatric Psychiatric exam: Normal affect, Normal mood - Skin Skin exam: Dry, Intact, Normal color, Warm Course Vital Signs 10/11/19 16:58 Temperature 98.3 F Pulse Rate 63 Respiratory 16 Rate Blood Pressure 113/70 Pulse Ox 97 Disposition Clinical Impression: Conjunctivitis Qualifiers: Conjunctivitis type: acute Acute conjunctivitis type: bacterial Laterality: left Qualified Code(s): H10.32 - Unspecified acute conjunctivitis, left eye Disposition: Home, Self-Care Condition: (1) Good Instructions: Conjunctivitis (ED) Additional Instructions: follow up with family Dr in 2 to 5 days use eye drops four times a day please give eye Dr list Prescriptions: Sulfacetamide Sodium [Bleph-10] 2 drop AFFEYE QID #5 ml Time of Disposition: 17:46 Quality - Quality Measures Quality Measures: N/A - Blood Pressure Screening Does Patient Have Any of the Following: No Blood Pressure Classification: Normal BP Reading Systolic Measurement: 113 Diastolic Measurement: 70 Screening for High Blood Pressure: < Normal BP, F/U Not Required > [G8783] Pre-Hypertensive Follow-up Interventions: Referral to alternative/primary care provider.
== END 2019-10-11 17:59 | disposition home or self-care (01) ==
LOC: ER 15:23
DX: H10.32 Unspecified acute conjunctivitis, left eye (principal); H53.142 Visual discomfort, left eye
CPT/HCPCS: 99283